=== PATIENT | female | born 1995 | race Caucasian/White ===

== ENCOUNTER 2018-04-21 09:45 | Emergency (ER) | payer MEDICAID, OTHER ==
--- NOTE | 2018-04-21 09:50 | EDPHY ---
H & P Smoking Status: Current some day smoker Time Seen by Provider: 04/21/18 09:49 HPI/ROS: CHIEF COMPLAINT: Left thumb laceration HISTORY OF PRESENT ILLNESS: 22-year-old female [id number] with out of date tetanus cutting a bagel earlier today sustained laceration to her left thumb distal phalanx. Complaining of numbness distal to the laceration. No flexor extensor deficits. PHYSICAL EXAM (Prior to examination, patient consented to physical exam, hands were washed and my usual and customary physical exam procedures followed) 1) GENERAL: Well-developed, well-nourished, alert and oriented. Appears to be in no acute distress. 2) HEAD: Normocephalic 3) HEENT: sclera anicteric 4) LUNGS: Breathing comfortably. 5) SKIN: Left thumb distal phalanx 1.5 cm linear laceration 6) MUSCULOSKELETAL: Flexor extensor function at the MCP and IP intact no deficits. No signs of infection. Negative kanavel. 7) NEUROLOGIC:Two-point discrimination intact distally. (Mary,Supa Nicole) Constitutional: Initial Vital Signs Temperature (C) 37.2 C 04/21/18 09:50 Heart Rate 92 04/21/18 09:50 Respiratory Rate 16 04/21/18 09:50 Blood Pressure 133/91 H 04/21/18 09:50 O2 Sat (%) 97 04/21/18 09:50 O2 Delivery Mode Room Air Allergies/Adverse Reactions: Penicillins Allergy (Verified 04/21/18 09:50) Home Medications: Medication Instructions Recorded Nuvaring Vaginal Ring 04/21/18 MDM/Departure - [facility] Procedures: Procedure: Laceration repair. I explained the indications, risks and benefits for both laceration repair and anesthetic administration. Verbal consent was obtained from the patient. The laceration on the left thumb was anesthetized using 0.5% bupivicaine without epinephrine digital nerve block. After anesthetic administered the patient was observed for a period of time and had no apparent adverse effects. The wound was cleaned, prepped, draped in normal sterile fashion and explored to its base. No foreign body seen, no foreign bodies palpated. There were no deep structures involved. No tendon injury was identified. The wound was repaired with 2 simple interrupted 5 O Prolene sutures. The wound repair was simple. The procedure was performed by myself. Patient has been informed that scarring will occur, although efforts have been made to minimize this. (Supa Hernandez) ED Course/Re-evaluation: Care of patient under supervision of primary supervising physician Dr Rodriguez . (Supa Hernandez) PHYSICIAN DOCUMENTATION: The patient was evaluated and managed by the Physician Cement Block Maker. My co- signature indicates that I have reviewed this chart and I agree with the findings and plan of care as documented. I am the secondary supervising physician. (Patrick Rodriguez) - Depart Disposition: Home, Routine, Self-Care Clinical Impression: Laceration of left thumb Qualifiers: Encounter type: initial encounter Damage to nail status: without damage Foreign body presence: without foreign body Qualified Code(s): S61.012A - Laceration without foreign body of left thumb without damage to nail, initial encounter Condition: Good Instructions: Laceration (ED) Additional Instructions: Return to the ER if you develop redness, swelling, discharge, warmth to the wound, red streaks going up your arm, or any other symptoms that concern you. Referrals: Return, to the ER in 10 days for suture removal [Other] - As per Instructions
[2018-04-21] MEDS ORDERED: TDAP ADULT 0.5 ML INJ (BOOSTRIX) IM ONE (10:28)
[2018-04-21 10:48] VITALS: BP 112/62
== END 2018-04-21 10:47 | disposition home or self-care (01) ==
PROC: 0HQGXZZ Repair Left Hand Skin, External Approach (ICD-10-PCS; principal; 2018-04-21)
DX: S61.012A Laceration without foreign body of left thumb without damage to nail, initial encounter (principal); Z23 Encounter for immunization; W26.0XXA Contact with knife, initial encounter; Y93.G1 Activity, food preparation and clean up; Y92.9 Unspecified place or not applicable; Y99.9 Unspecified external cause status